=== PATIENT | male | born 1985 | race Caucasian/White ===

== ENCOUNTER 2021-04-06 21:48 | Emergency (ER) | payer MEDICAID ==
[2021-04-06] MEDS ORDERED: Ketorolac 60 MG/2 ML SDV IM ONE (22:38)
--- NOTE | 2021-04-06 22:41 | EDM.PDOC ---
ED HPI GENERAL MEDICAL PROBLEM - General Chief Complaint: ENT Problem Stated Complaint: TOOTH ABCESS/VOMITTING Time Seen by Provider: 04/06/21 22:19 Source of Information: Reports: Patient History Limitations: Reports: No Limitations - History of Present Illness INITIAL COMMENTS - FREE TEXT/NARRATIVE: 35-year-old male presents the emergency department today with complaints of left lower jaw/tooth pain that started approximately 3 to 4 days ago and became worse tonight. Patient states that approximately a year ago the tooth had broken off and he has not had it repaired. States that he did drink a few beers tonight and fell asleep and woke up and began throwing up because of the tooth. He has not had any fever or chills. He has not had any headache. Left Oral/Mouth Pain Score (Numeric/FACES): 8 - Related Data Allergies Allergy/AdvReac Type Severity Reaction Status Date / Time No Known Allergies Allergy Verified 04/06/21 22:24 Home Meds: Home Meds . [No Known Home Meds] 04/06/21 [History] Past Medical History - Past Surgical History GI Surgical History: Reports: Appendectomy Social & Family History - Tobacco Use Tobacco Use Status *Q: Current Every Day Tobacco User Years of Tobacco use: 15 Packs/Tins Daily: 1 - Caffeine Use Caffeine Use: Reports: Coffee, Energy Drinks, Soda - Recreational Drug Use Recreational Drug Use: No ED ROS ENT - Review of Systems Review Of Systems: Comprehensive ROS is negative, except as noted in HPI. ED EXAM, ENT - Physical Exam Exam: See Below Exam Limited By: No Limitations General Appearance: Alert, WD/WN, No Apparent Distress Ears: Normal External Exam, Hearing Grossly Normal Nose: Normal Inspection Mouth/Throat: Normal Inspection, Normal Lips, Dental Pain, Dental Tenderness (Long tooth #18), Gum Swelling (Along tooth #18). No: Normal Teeth (Tooth #18 broken on the lateral aspect) Head: Atraumatic, Normocephalic Neck: Normal Inspection, Supple, Non-Tender, Full Range of Motion. No: Lymphadenopathy (L), Lymphadenopathy (R) Respiratory/Chest: No Respiratory Distress, No Accessory Muscle Use Cardiovascular: Normal Peripheral Pulses, Regular Rate, Rhythm GI/Abdominal: No Distention (Male) Exam: Deferred Rectal (Males) Exam: Deferred Back: Normal Inspection Extremities: Normal Inspection Neurological: Alert, Oriented, Normal Cognition Psychiatric: Normal Affect, Normal Mood Skin: Warm, Dry, Intact, Normal Color, No Rash Lymphatic: No Adenopathy Course - Vital Signs Text/Narrative:: As stated above patient presents with a 3 to 4-day history of tooth pain. Upon exam, patient is found sleeping in bed and does not appear to be in any discomfort. The room does smell of alcohol. The patient does have a broken tooth noted to number 18 on the lateral aspect of the tooth. Gumline on the lateral aspect of this tooth is red and swollen however I do not appreciate any drainage. No swelling noted to jaw or lymph nodes. We will give the patient Toradol 60 mg IM x1 dose. Patient will be given a prescription for clindamycin and a few tabs of hydrocodone upon discharge to home. Last Recorded V/S: Last Vital Signs Temp 97.0 F 04/06/21 22:22 Pulse 61 04/06/21 22:22 Resp 18 04/06/21 22:22 BP 144/103 H 04/06/21 22:22 Pulse Ox 97 04/06/21 22:22 - Orders/Labs/Meds Meds: Medications Discontinued Medications Generic Name Dose Route Start Last Admin Trade Name Freq PRN Reason Stop Dose Admin Ketorolac Tromethamine 60 mg 04/06/21 22:38 Ketorolac 60 Mg/2 Ml Sdv IM 04/06/21 22:39 ONETIME ONE Departure - Departure Time of Disposition: 22:43 Disposition: Home, Self-Care 01 Condition: Good Clinical Impression: Dental abscess - Discharge Information Instructions: Dental Abscess, [id number] Referrals: PCP,None [Primary Care Provider] - Forms: ED Department Discharge Additional Instructions: You were seen in the emergency department this evening with pain noted to your second to last tooth left bottom side. Evaluation was completed. Do not appreciate any swelling of your jaw. Do not appreciate significant lymph node swelling that would indicate that you have a severe infection. You were given pain medication while in the emergency department. I have given you a prescription for an antibiotic medication called clindamycin. You will need to take 1 tablet 4 times daily for a total of 7 days. Be sure to complete the full course of antibiotics to clear up the infection. It would likely take a couple of days time for you to notice the antibiotics are working. I have given a prescription for narcotic pain medication called hydrocodone for you to use for the next couple of days. Do not take this medication tonight as you have been drinking alcohol. Starting tomorrow, you may take 1 tab every 4-6 hours as needed for more severe pain. After a couple of days he likely should not need the pain medication as the antibiotics will take effect and begin to clear up the infection. At that time you may take Tylenol 650 mg every 4 hours or ibuprofen 600 mg every 6-8 hours for discomfort. Recommend scheduling a dentist appointment first thing tomorrow as it does take some time to get into see a dentist. Sepsis Event Note (ED) - Focused Exam Vital Signs: Vital Signs Temp Pulse Resp BP Pulse Ox 04/06/21 22:22 97.0 F 61 18 144/103 H 97
== END 2021-04-06 23:12 | disposition home or self-care (01) ==
LOC: JD.ED 21:48
DX: K04.7 Periapical abscess without sinus (principal); Z72.0 Tobacco use
CPT/HCPCS: 96372; 99282; J1885

== ENCOUNTER 2021-07-10 09:23 | Emergency (ER) | payer MEDICAID ==
[2021-07-10] MEDS ORDERED: Metoclopramide 10 MG/2 ML SDV IVPUSH ONE (09:57)
[2021-07-10] MEDS ORDERED: Dextrose 5%-Lactated Ringers 1,000 ML IV SCH (10:00)
== END 2021-07-10 12:00 | disposition home or self-care (01) ==
LOC: JD.ED 09:23
DX: F11.23 Opioid dependence with withdrawal (principal); F10.230 Alcohol dependence with withdrawal, uncomplicated; Z72.0 Tobacco use
CPT/HCPCS: 36415; 80053; 80306; 80307; 82009; 83690; 83735; 85025; 86140; 93005; 96374; 99285; J2765; J7121; 93010; 99284

== ENCOUNTER 2021-09-23 19:41 | Emergency (ER) | payer MEDICAID ==
[2021-09-23] MEDS ORDERED: Ondansetron 4 MG Tab.DIS PO ONE (20:42)
== END 2021-09-23 22:45 | disposition left against medical advice (07) ==
LOC: JD.ED 19:41
DX: R69 Illness, unspecified (principal); F17.210 Nicotine dependence, cigarettes, uncomplicated
CPT/HCPCS: 36415; 80053; 80306; 80307; 81003; 83690; 83735; 84443; 85025; 99283; A9270